=== PATIENT | female | born 1970 ===

== ENCOUNTER → 2018-04-11 21:43 | Outpatient (REF) | payer OTHER, SELFPAY ==
[2018-04-13 14:45] LABS: EBV Virus IgM Ab < 36.00 U/mL (< 36.00)
== END ==
LOC: LAB 21:43
PROVIDERS: Visit Provider Acupuncturist
DX: B27.00 Gammaherpesviral mononucleosis without complication (principal)
CPT/HCPCS: 86663; 86664; 86665